=== PATIENT | male | born 1935 | race Caucasian/White ===

== ENCOUNTER 2018-01-05 08:46 | Day surgery (SDC) | payer MEDICARE ==
[~2018-01-05 08:46] MED LIST: ALIS150T PO; AMLO5TAB2 PO; ATRNS; CALC600T14 PO; CHOL200035 PO; CLOP75TA35 PO; FURO-150 PO; GABA-330 PO; HUM7525 SQ; LANTUS SQ; LIRA0.6P2 SQ; MAGN400C PO; OMEG1CAP PO; POTA20TA39 PO; VALS160T2 PO; [UNRECOGNIZED DRUG - CODE] OP; [UNRECOGNIZED DRUG - OTHER]
[2018-01-05] MEDS ORDERED: LIDOcaine 2% 5ml jelly ONE (09:59)
[2018-01-10] MEDS ORDERED: CEPH-571 PO (08:52)
== END 2018-01-05 11:04 | disposition home or self-care (01) ==
LOC: WOUND CARE 08:46
PROVIDERS: ATTEND Surgery
DX: S81.802D Unspecified open wound, left lower leg, subsequent encounter (principal); I25.810 Atherosclerosis of coronary artery bypass graft(s) without angina pectoris; E11.65 Type 2 diabetes mellitus with hyperglycemia; E11.22 Type 2 diabetes mellitus with diabetic chronic kidney disease; I12.9 Hypertensive chronic kidney disease with stage 1 through stage 4 chronic kidney disease, or unspecified chronic kidney disease; N18.4 Chronic kidney disease, stage 4 (severe); E78.5 Hyperlipidemia, unspecified; I25.2 Old myocardial infarction; Z86.73 Personal history of transient ischemic attack (TIA), and cerebral infarction without residual deficits; W19.XXXD Unspecified fall, subsequent encounter
CPT/HCPCS: 36416; 82948; 97597; A6206; A6212; A6446

== ENCOUNTER 2018-01-12 08:54 | Outpatient (CLI) | payer MEDICARE, BC ==
[~2018-01-12 08:54] MED LIST changes: -ALIS150T PO; +CEPH-571 PO; -HUM7525 SQ; -LANTUS SQ; -OMEG1CAP PO; -[UNRECOGNIZED DRUG - CODE] OP; -[UNRECOGNIZED DRUG - OTHER]
== END 2018-01-12 12:12 | disposition home or self-care (01) ==
LOC: WOUND CARE 08:54 → EDSTATUS 09:00 → WOUND CARE 12:12
PROVIDERS: ATTEND Surgery
DX: E11.622 Type 2 diabetes mellitus with other skin ulcer (principal); L97.821 Non-pressure chronic ulcer of other part of left lower leg limited to breakdown of skin; I25.810 Atherosclerosis of coronary artery bypass graft(s) without angina pectoris; E11.65 Type 2 diabetes mellitus with hyperglycemia; E11.22 Type 2 diabetes mellitus with diabetic chronic kidney disease; I12.9 Hypertensive chronic kidney disease with stage 1 through stage 4 chronic kidney disease, or unspecified chronic kidney disease; N18.4 Chronic kidney disease, stage 4 (severe); E78.5 Hyperlipidemia, unspecified; I25.2 Old myocardial infarction; Z86.73 Personal history of transient ischemic attack (TIA), and cerebral infarction without residual deficits; Z79.899 Other long term (current) drug therapy; Z95.1 Presence of aortocoronary bypass graft
CPT/HCPCS: 99215; A6021; A6206; A6212

== ENCOUNTER 2018-01-19 08:30 | Day surgery (SDC) | payer MEDICARE, BC ==
[2018-01-19] MEDS: LIDOcaine 2% 5ml jelly ONE (09:42)
== END 2018-01-19 11:03 | disposition home or self-care (01) ==
LOC: WOUND CARE 08:30
PROVIDERS: ATTEND Surgery
DX: E11.622 Type 2 diabetes mellitus with other skin ulcer (principal); L97.821 Non-pressure chronic ulcer of other part of left lower leg limited to breakdown of skin; I25.810 Atherosclerosis of coronary artery bypass graft(s) without angina pectoris; E11.65 Type 2 diabetes mellitus with hyperglycemia; E11.22 Type 2 diabetes mellitus with diabetic chronic kidney disease; I12.9 Hypertensive chronic kidney disease with stage 1 through stage 4 chronic kidney disease, or unspecified chronic kidney disease; N18.4 Chronic kidney disease, stage 4 (severe); E78.5 Hyperlipidemia, unspecified; I25.2 Old myocardial infarction; Z86.73 Personal history of transient ischemic attack (TIA), and cerebral infarction without residual deficits; Z79.899 Other long term (current) drug therapy; Z95.1 Presence of aortocoronary bypass graft
CPT/HCPCS: 36416; 82948; 97597; A6021; A6206; A6212

== ENCOUNTER 2018-01-26 08:20 | Outpatient (CLI) | payer MEDICARE, BC | END 2018-01-26 10:36 | disposition home or self-care (01) | LOC: WOUND CARE 08:20 → EDSTATUS 09:00 → WOUND CARE 10:36 | PROVIDERS: ATTEND Surgery | DX: E11.622 Type 2 diabetes mellitus with other skin ulcer (principal); L97.821 Non-pressure chronic ulcer of other part of left lower leg limited to breakdown of skin; I25.810 Atherosclerosis of coronary artery bypass graft(s) without angina pectoris; E11.65 Type 2 diabetes mellitus with hyperglycemia; E11.22 Type 2 diabetes mellitus with diabetic chronic kidney disease; I12.9 Hypertensive chronic kidney disease with stage 1 through stage 4 chronic kidney disease, or unspecified chronic kidney disease; N18.4 Chronic kidney disease, stage 4 (severe); E78.5 Hyperlipidemia, unspecified; I25.2 Old myocardial infarction; Z86.73 Personal history of transient ischemic attack (TIA), and cerebral infarction without residual deficits; Z79.899 Other long term (current) drug therapy; Z95.1 Presence of aortocoronary bypass graft | CPT/HCPCS: 82948; 99215; A6021; A6206; A6212 ==

== ENCOUNTER 2018-03-12 19:31 | Emergency (ER) | payer MEDICARE, BC ==
[~2018-03-12] VITALS: Ht 172.7 cm; Wt 63.5 kg
[~2018-03-12 19:31] MED LIST changes: -AMLO5TAB2 PO; +AMLO5TAB7 PO; -CEPH-571 PO
[2018-03-12] MEDS ORDERED: LIDOcaine/epinephrine TOPICAL 5 ML BTL TOP ONE (19:45)
[2018-03-12 19:55] LABS: BASOPHILS % (AUTO) 1.3 % (0-1); EOSINOPHILS % (AUTO) 0.9 % (0-6); HEMATOCRIT 28.4 % (42.0-52.0); HEMOGLOBIN 9.5 g/dl (14.0-17.9); LYMPHOCYTES # (AUTO) 1.5 X10'3 (1.1-4.8); LYMPHOCYTES % (AUTO) 49.7 % (21-51); MEAN CORPUSCULAR HGB CONC 33.4 % (33.0-36.5); MEAN CORPUSCULAR VOLUME 86.9 FL (78-98); MEAN PLATELET VOLUME 8.1 FL (7.4-10.4); MONOCYTES # (AUTO) 0.2 X10'3 (0-0.9); MONOCYTES % (AUTO) 5.3 % (2-12); NEUTROPHILS # (AUTO) 1.3 X10'3 (1.8-7.7); NEUTROPHILS % (AUTO) 42.8 % (42-75); PLATELET COUNT 63 X10'3 (140-440); RED BLOOD COUNT 3.26 X10'6 (4.70-6.10); WHITE BLOOD COUNT 3.1 X10'3 (4.5-11.0)
[2018-03-12 20:04] LABS: INR 1.2 INR; PROTHROMBIN TIME 12.1 SECONDS (9.0-12.0)
[2018-03-12 20:08] LABS: ALANINE AMINOTRANSFERASE 17 U/L (12-78); ALBUMIN 3.7 G/DL (3.4-5.0); ALBUMIN/GLOBULIN RATIO 1.9 (1.1-1.5); ALKALINE PHOSPHATASE 61 IU/L (46-116); ANION GAP 10 (8-16); ASPARTATE AMINO TRANSFERASE 14 U/L (10-37); BILIRUBIN,TOTAL 0.4 MG/DL (0.1-1.0); BLOOD UREA NITROGEN 32 MG/DL (7-18); BUN/CREATININE RATIO 14.8 (5.4-32.0); CALCIUM 8.4 MG/DL (8.5-10.1); CHLORIDE 109 MMOL/L (99-107); CREATININE 2.16 MG/DL (0.60-1.10); GLUCOSE 159 MG/DL (70-104); POTASSIUM 3.9 MMOL/L (3.5-5.1); SODIUM 146 MMOL/L (135-145); TOTAL CARBON DIOXIDE 26.6 MMOL/L (24-32); TOTAL PROTEIN 5.7 G/DL (6.4-8.2); eGFR 29 ML/MIN
[2018-03-12 20:21] LABS: ACANTHOCYTES 1+; ANISOCYTOSIS 1+; PLATELET ESTIMATE DECREASED; TOTAL CELLS COUNTED 100
[2018-03-12 20:22] VITALS: BP 151/94
== END 2018-03-12 20:45 | disposition home or self-care (01) ==
LOC: ER 19:32
DX: S00.01XA Abrasion of scalp, initial encounter (principal); S80.211A Abrasion, right knee, initial encounter; E11.9 Type 2 diabetes mellitus without complications; M19.90 Unspecified osteoarthritis, unspecified site; Z86.73 Personal history of transient ischemic attack (TIA), and cerebral infarction without residual deficits; Z98.890 Other specified postprocedural states; Z60.2 Problems related to living alone; Z88.2 Allergy status to sulfonamides; Z88.5 Allergy status to narcotic agent; Z88.1 Allergy status to other antibiotic agents; Z88.8 Allergy status to other drugs, medicaments and biological substances; Z79.899 Other long term (current) drug therapy; W01.0XXA Fall on same level from slipping, tripping and stumbling without subsequent striking against object, initial encounter; Y93.01 Activity, walking, marching and hiking; Y92.89 Other specified places as the place of occurrence of the external cause; Y99.8 Other external cause status
CPT/HCPCS: 36415; 70450; 80053; 85025; 85610; 93005; 99285; A6449; J7030

== ENCOUNTER 2018-03-15 20:27 | Emergency (ER) | payer MEDICARE, BC ==
[~2018-03-15] VITALS: Ht 177.8 cm; Wt 63.6 kg
[2018-03-15 21:13] VITALS: BP 144/56
== END 2018-03-16 00:34 | disposition home or self-care (01) ==
LOC: ER 20:28
DX: S16.1XXA Strain of muscle, fascia and tendon at neck level, initial encounter (principal); R51 Headache; E11.9 Type 2 diabetes mellitus without complications; M19.90 Unspecified osteoarthritis, unspecified site; Z86.73 Personal history of transient ischemic attack (TIA), and cerebral infarction without residual deficits; Z95.1 Presence of aortocoronary bypass graft; Z88.6 Allergy status to analgesic agent; Z88.1 Allergy status to other antibiotic agents; Z88.2 Allergy status to sulfonamides; Z88.8 Allergy status to other drugs, medicaments and biological substances; W18.30XA Fall on same level, unspecified, initial encounter; Y93.89 Activity, other specified; Y92.89 Other specified places as the place of occurrence of the external cause; Y99.8 Other external cause status
CPT/HCPCS: 70450; 72125; 99284; L0172

== ENCOUNTER 2019-01-18 05:36 | Emergency (ER) | payer MEDICARE, BC ==
[~2019-01-18] VITALS: Ht 182.9 cm; Wt 72.7 kg
[~2019-01-18 05:36] MED LIST changes: +AMLO-314 PO; -AMLO5TAB7 PO
[2019-01-18 06:22] LABS: BASOPHILS % (AUTO) 0.6 % (0-1); EOSINOPHILS # (AUTO) 0.1 X10'3 (0-0.9); HEMOGLOBIN 9.9 g/dl (14.0-17.9); LYMPHOCYTES # (AUTO) 0.1 X10'3 (1.1-4.8); MONOCYTES # (AUTO) 0.3 X10'3 (0-0.9); NEUTROPHILS # (AUTO) 3.2 X10'3 (1.8-7.7)
[2019-01-18 06:25] LABS: EOSINOPHILS % (AUTO) 2.4 % (0-6); HEMATOCRIT 29.6 % (42.0-52.0); LYMPHOCYTES % (AUTO) 2.9 % (21-51); MEAN CORPUSCULAR HEMOGLOBIN 31.8 PG (27.0-31.0); MEAN CORPUSCULAR HGB CONC 33.4 g/dL (33.0-36.5); MEAN CORPUSCULAR VOLUME 95.1 FL (78-98); MEAN PLATELET VOLUME 8.7 FL (7.4-10.4); MONOCYTES % (AUTO) 7.7 % (2-12); NEUTROPHILS % (AUTO) 86.4 % (42-75); PLATELET COUNT 57 X10'3 (140-440); RED BLOOD COUNT 3.11 X10'6 (4.70-6.10); WHITE BLOOD COUNT 3.7 X10'3 (4.5-11.0)
--- NOTE | 2019-01-18 06:28 | NUR ---
PATIENT RECEIVED ON BED AWAKE.
--- NOTE | 2019-01-18 06:36 | NUR ---
called cas shaffer spoke to Mckenzie,per caregiver,patient does not have list of Past medical history.
[2019-01-18 06:37] LABS: ALANINE AMINOTRANSFERASE 23 U/L (12-78); ALBUMIN 3.5 G/DL (3.4-5.0); ALBUMIN/GLOBULIN RATIO 1.7 (1.1-1.5); ALKALINE PHOSPHATASE 66 IU/L (46-116); ANION GAP 7 (8-16); ASPARTATE AMINO TRANSFERASE 18 U/L (10-37); BILIRUBIN,TOTAL 0.6 MG/DL (0.1-1.0); BLOOD UREA NITROGEN 31 MG/DL (7-18); BUN/CREATININE RATIO 19.9 (5.4-32.0); CALCIUM 8.6 MG/DL (8.5-10.1); CHLORIDE 113 MMOL/L (99-107); CREATINE KINASE 93 U/L (39-308); CREATININE 1.56 MG/DL (0.60-1.10); GLUCOSE 121 MG/DL (70-104); POTASSIUM 4.2 MMOL/L (3.5-5.1); SODIUM 146 MMOL/L (135-145); TOTAL CARBON DIOXIDE 26.1 MMOL/L (24-32); TOTAL PROTEIN 5.6 G/DL (6.4-8.2); eGFR 43 ML/MIN
--- NOTE | 2019-01-18 06:43 | NUR ---
cancel trauma alert per Dr. olea.
--- NOTE | 2019-01-18 06:45 | NUR ---
PT HAS PORT IN RT CHEST
[2019-01-18 07:00] LABS: CLARITY,URINE CLEAR (Clear); COLOR,URINE STRAW (Yellow); GLUCOSE, URINE NEGATIVE (Neg); KETONES,URINE NEGATIVE (Neg); LEUKOCYTE ESTERASE ,URINE NEGATIVE (Neg); NITRITES, URINE NEGATIVE (Neg); OCCULT BLOOD,URINE TRACE-INTACT (Neg); PROTEIN,URINE 100 mg/dl (Neg); UROBILINOGEN,URINE 0.2 E.U/dL (0.2-1.0)
[2019-01-18 07:06] LABS: UA COLLECTION TYPE CLN CATCH MIDSTREAM
[2019-01-18 07:10] LABS: BACTERIA,URINE FEW /HPF (Neg); SQUAMOUS EPITHELIAL CELL,UR FEW /LPF (FEW); WBC,URINE 0-4 /HPF (0-4)
[2019-01-18 08:16] VITALS: BP 165/81
== END 2019-01-18 08:19 | disposition home or self-care (01) ==
LOC: ER 05:36
DX: S40.012A Contusion of left shoulder, initial encounter (principal); S00.83XA Contusion of other part of head, initial encounter; F03.90 Unspecified dementia, unspecified severity, without behavioral disturbance, psychotic disturbance, mood disturbance, and anxiety; E11.9 Type 2 diabetes mellitus without complications; M19.90 Unspecified osteoarthritis, unspecified site; Z88.2 Allergy status to sulfonamides; Z88.1 Allergy status to other antibiotic agents; Z88.5 Allergy status to narcotic agent; Z79.899 Other long term (current) drug therapy; Z86.73 Personal history of transient ischemic attack (TIA), and cerebral infarction without residual deficits; Z95.1 Presence of aortocoronary bypass graft; Z98.890 Other specified postprocedural states; W18.39XA Other fall on same level, initial encounter; Y93.89 Activity, other specified; Y92.89 Other specified places as the place of occurrence of the external cause; Y99.8 Other external cause status
CPT/HCPCS: 36415; 70450; 71045; 72125; 73030; 80053; 81001; 82550; 83735; 84484; 85025; 87088; 93005; 99284

== ENCOUNTER 2019-01-22 15:52 | Inpatient (IN) | payer MEDICARE, BC ==
[~2019-01-22] VITALS: Ht 172.7 cm; Wt 85.0 kg
[2019-01-22] MEDS ORDERED: normal saline 1000ML IV soln IV ONE (16:10)
[2019-01-22] MEDS ORDERED: CefTRIAXone 2gm/D5W 50ml 50 ML IV ONE (16:10)
[2019-01-22 16:38] LABS: BASOPHILS % (AUTO) 0.3 % (0-1); EOSINOPHILS % (AUTO) 0.2 % (0-6); HEMATOCRIT 30.3 % (42.0-52.0); HEMOGLOBIN 10.1 g/dl (14.0-17.9); LYMPHOCYTES # (AUTO) 0.1 X10'3 (1.1-4.8); LYMPHOCYTES % (AUTO) 1.6 % (21-51); MEAN CORPUSCULAR HEMOGLOBIN 31.6 PG (27.0-31.0); MEAN CORPUSCULAR HGB CONC 33.3 g/dL (33.0-36.5); MEAN CORPUSCULAR VOLUME 94.8 FL (78-98); MEAN PLATELET VOLUME 7.8 FL (7.4-10.4); MONOCYTES # (AUTO) 0.4 X10'3 (0-0.9); MONOCYTES % (AUTO) 6.9 % (2-12); NEUTROPHILS # (AUTO) 5.3 X10'3 (1.8-7.7); PLATELET COUNT 66 X10'3 (140-440); RED CELL DISTRIBUTION WIDTH 15.4 % (11.5-14.5); WHITE BLOOD COUNT 5.8 X10'3 (4.5-11.0)
[2019-01-22] MEDS ORDERED: azithromycin/NS 500mg/250ml 250 ML IV ONE (16:45)
[2019-01-22 16:51] LABS: PARTIAL THROMBOPLASTIN TIME 40 SECONDS (22-32)
[2019-01-22 16:53] LABS: ALANINE AMINOTRANSFERASE 21 U/L (12-78); ALBUMIN 3.1 G/DL (3.4-5.0); ALBUMIN/GLOBULIN RATIO 1.3 (1.1-1.5); ALKALINE PHOSPHATASE 61 IU/L (46-116); ANION GAP 7 (8-16); ASPARTATE AMINO TRANSFERASE 16 U/L (10-37); BILIRUBIN,TOTAL 0.7 MG/DL (0.1-1.0); BLOOD UREA NITROGEN 31 MG/DL (7-18); BUN/CREATININE RATIO 18.6 (5.4-32.0); CALCIUM 7.9 MG/DL (8.5-10.1); CHLORIDE 107 MMOL/L (99-107); CREATININE 1.67 MG/DL (0.60-1.10); GLUCOSE 163 MG/DL (70-104); POTASSIUM 4.3 MMOL/L (3.5-5.1); SODIUM 141 MMOL/L (135-145); TOTAL CARBON DIOXIDE 27.2 MMOL/L (24-32); TOTAL PROTEIN 5.5 G/DL (6.4-8.2); eGFR 39 ML/MIN
[2019-01-22 17:09] LABS: CLARITY,URINE SLIGHTLY CLOUDY (Clear); COLOR,URINE YELLOW (Yellow); GLUCOSE, URINE 250 mg/dl (Neg); KETONES,URINE NEGATIVE (Neg); LEUKOCYTE ESTERASE ,URINE NEGATIVE (Neg); NITRITES, URINE NEGATIVE (Neg); OCCULT BLOOD,URINE SMALL (Neg); PH,URINE 5.5 (4.8-8.0); PROTEIN,URINE 100 mg/dl (Neg); UROBILINOGEN,URINE 0.2 E.U/dL (0.2-1.0)
[2019-01-22 17:16] LABS: UA COLLECTION TYPE STRAIGHT CATH
[2019-01-22 17:26] LABS: COARSE GRANULAR CAST 0-3 /LPF (NEGATIVE)
[2019-01-22 17:27] LABS: SQUAMOUS EPITHELIAL CELL,UR NONE SEEN /LPF (FEW)
[2019-01-22] MEDS ORDERED: ipratropium/albuterol 3ml nebule NEB ONE (17:30)
[2019-01-22] MEDS ORDERED: methylPREDNISolone sod succ 125mg/2ml vial IV ONE (17:30)
[2019-01-22 17:31] LABS: AMORPHOUS URATES 2+
[2019-01-22 17:33] LABS: BACTERIA,URINE FEW /HPF (Neg)
[2019-01-22 17:34] LABS: RBC,URINE 0-2 /HPF (0-2)
[2019-01-22 17:35] LABS: WBC,URINE NONE SEEN /HPF (0-4)
[2019-01-22] MEDS ORDERED: CALC1TAB PO (17:55)
[2019-01-22] MEDS ORDERED: FERR324T3 PO (17:55)
[2019-01-22] MEDS ORDERED: OLME20TA23 PO (17:55)
[2019-01-22] MEDS ORDERED: DOCU100C41 PO (17:55)
[2019-01-22] MEDS ORDERED: ALLO300T2 PO (17:55)
[2019-01-22] MEDS ORDERED: LOPE-144 PO (17:55)
[2019-01-22] MEDS ORDERED: ESCI10TA54 PO (17:55)
--- NOTE | 2019-01-22 18:20 | NUR ---
HOSPITALIST AT BEDSIDE FOR ADMISSION
[2019-01-22] MEDS: normal saline 1000ml 1,000 ML IV SCH (18:21)
[2019-01-22] MEDS ORDERED: HYDROcodone/acetaminophen 5mg/325mg tablet PO PRN (18:25)
[2019-01-22] MEDS ORDERED: morphine 2 MG/ML inj. syringe IV PRN (18:25)
[2019-01-22] MEDS ORDERED: ondansetron/PF 4mg/2ml inj IV PRN (18:25)
[2019-01-22] MEDS ORDERED: acetaminophen 325mg tablet PO PRN (18:25)
[2019-01-22] MEDS ORDERED: glucagon, human recombinant 1mg kit SUBCUT PRN (18:30)
[2019-01-22] MEDS ORDERED: dextrose 50%-water 50ml dispensing syringe IV PRN ×2 (18:30)
[2019-01-22] MEDS ORDERED: dextrose ORAL solution 15 GM/59 ML bottle PO PRN ×2 (18:30)
[2019-01-22] MEDS ORDERED: MESSAGE TO PHARMACY PO ONE (18:30)
[2019-01-22] MEDS: acetaminophen 325mg tablet PO PRN (18:40)
[2019-01-22 19:06] LABS: HEMOGLOBIN A1C 5.7 % (4.5-6.2)
--- NOTE | 2019-01-22 19:29 | NUR ---
DAUGHTER AT BEDSIDE - IV FLUID BOLUS INFUSING WELL ABX.
[2019-01-22] MEDS: magnesium oxide 400mg tablet PO SCH (20:00)
[2019-01-22] MEDS: docusate sod 100mg capsule PO SCH (20:00)
[2019-01-22] MEDS ORDERED: non-formulary drug (Magnesium Oxide (Magnesium) 400 MG) PO SCH (20:00)
[2019-01-22] MEDS ORDERED: heparin, porcine 5000 units/ml vial SQ SCH (20:00)
--- NOTE | 2019-01-22 20:40 | NUR ---
Patient arrived to floor from the ER. Accompanied with family. Patient is not in any pain or respiratory distress at this time.
[2019-01-22] MEDS ORDERED: FERROUS GLUCONATE PO SCH (21:00)
[2019-01-22] MEDS: insulin glargine (Lantus) pen - multi-dose SQ SCH (21:00)
[2019-01-22] MEDS: amLODIPine 5mg tablet PO SCH (21:32)
--- NOTE | 2019-01-22 22:52 | NUR ---
Earlier in shift called respiratory to assess patient as lungs sounding wet/coarse. Rt evaluated, stated no treatments would help at this time. called MD who stated as long as patient asymptomatic, no lasik required, skip the 3rd bolus of 1000ml from ER and ok to infuse maintanence fluid at 50ml/hr. Will continue to monitor. Addendum: 01/22/19 at 2300 by Leslie Rasmussen RN Informed by tele that patient now in bigeminy rhythm. VS 133/55,69, 97% on 3L. informed who stated as long as patient asymptomatic, no new orders.
--- NOTE | 2019-01-22 23:08 | NUR ---
Patient did not receive lantus HS as patient had eaten a yoghurt down in ER. Charge nurse said to re-evaluate n the AM as patient has a low A1C.
[2019-01-23] VITALS: BP 135/51
[2019-01-23] MEDS: piperacillin/tazo 3.375gm/50ml 50 ML IV SCH ×3 (00:12→16:31)
[2019-01-23 05:00] LABS: BASOPHILS % (AUTO) 0.1 % (0-1); EOSINOPHILS % (AUTO) 0.1 % (0-6); HEMATOCRIT 27.8 % (42.0-52.0); HEMOGLOBIN 9.2 g/dl (14.0-17.9); LYMPHOCYTES # (AUTO) 0.1 X10'3 (1.1-4.8); LYMPHOCYTES % (AUTO) 2.5 % (21-51); MEAN PLATELET VOLUME 8.4 FL (7.4-10.4); MONOCYTES # (AUTO) 0.1 X10'3 (0-0.9); MONOCYTES % (AUTO) 3.7 % (2-12); NEUTROPHILS % (AUTO) 93.6 % (42-75); PLATELET COUNT 52 X10'3 (140-440); RED BLOOD COUNT 2.95 X10'6 (4.70-6.10); RED CELL DISTRIBUTION WIDTH 15.4 % (11.5-14.5); WHITE BLOOD COUNT 2.1 X10'3 (4.5-11.0)
[2019-01-23 05:09] LABS: ALBUMIN 2.7 G/DL (3.4-5.0); ANION GAP 8 (8-16); BLOOD UREA NITROGEN 31 MG/DL (7-18); CALCIUM 7.9 MG/DL (8.5-10.1); CHLORIDE 111 MMOL/L (99-107); CREATININE 1.63 MG/DL (0.60-1.10); GLUCOSE 247 MG/DL (70-104); POTASSIUM 4.5 MMOL/L (3.5-5.1); SODIUM 143 MMOL/L (135-145); TOTAL CARBON DIOXIDE 24.1 MMOL/L (24-32); eGFR 40 ML/MIN
--- NOTE | 2019-01-23 06:10 | NUR ---
Problems reprioritized. Patient report given, questions answered & plan of care reviewed with Heather EUBANKS.
--- NOTE | 2019-01-23 06:35 | NUR ---
Patient in room SHELL 344. I have received report from Leslie EUBANKS and had the opportunity to ask questions and assume patient care.
[2019-01-23 07:28] LABS: TOTAL CELLS COUNTED 100
[2019-01-23 07:29] LABS: PLATELET ESTIMATE DECREASED
[2019-01-23 07:31] VITALS: BP 126/54
[2019-01-23] MEDS: docusate sod 100mg capsule PO SCH ×2 (07:42→19:48)
[2019-01-23] MEDS: allopurinol 300 MG tablet PO SCH (07:42)
[2019-01-23] MEDS: losartan 50mg tablet PO SCH (07:42)
[2019-01-23] MEDS: amLODIPine 5mg tablet PO SCH ×2 (07:42→19:48)
[2019-01-23] MEDS: magnesium oxide 400mg tablet PO SCH ×2 (07:42→19:48)
[2019-01-23] MEDS: clopidogrel 75mg tablet PO SCH (07:42)
[2019-01-23] MEDS: citalopram 20mg tablet PO SCH (07:42)
[2019-01-23] MEDS: ferrous gluconate 324mg tablet PO SCH ×3 (07:45→16:32)
[2019-01-23] MEDS ORDERED: non-formulary drug (Escitalopram Oxalate 1 TAB) PO SCH (08:00)
[2019-01-23] MEDS ORDERED: OLMESARTAN MEDOXOMIL PO SCH (08:00)
[2019-01-23] MEDS ORDERED: ferrous gluconate 324mg tablet PO SCH (08:30)
[2019-01-23] MEDS: insulin Lispro (HumaLOG) vial - multi-dose SQ SCH ×2 (09:14→14:06)
--- NOTE | 2019-01-23 10:31 | NUR ---
Pt with low Yong of 12. Per physical assessment pt with no edema and skin intact. No nutrition intervention warranted at this time. Will continue to follow. Addendum: 01/23/19 at [address] Amended: Links added.
[2019-01-23] MEDS ORDERED: GABA600T13 PO (11:33)
[2019-01-23 11:53] VITALS: BP 122/47
[2019-01-23] MEDS: normal saline 1000ml 1,000 ML IV SCH ×2 (14:21→16:34)
[2019-01-23] MEDS: ipratropium/albuterol 3ml nebule NEB SCH ×3 (16:12→23:16)
[2019-01-23 18:00] VITALS: BP 148/67
--- NOTE | 2019-01-23 18:27 | NUR ---
Patient in room SHELL 344. I have received report from RAIMUNDO Romero and had the opportunity to ask questions and assume patient care. Addendum: 01/23/19 at 1827 by Sneha Roldan RN Amended: Links added.
--- NOTE | 2019-01-23 18:27 | NUR ---
Problems reprioritized. Patient report given, questions answered & plan of care reviewed with Delia Collado RN.
--- NOTE | 2019-01-23 19:42 | NUR ---
pt did not cover his insulin for dinner, BS was 96 and refused his dinner, no s/s of hypoglycemia noted
[2019-01-23] MEDS: insulin glargine (Lantus) pen - multi-dose SQ SCH (21:00)
[2019-01-24] MEDS: acetaminophen 325mg tablet PO PRN (00:44)
[2019-01-24] MEDS: piperacillin/tazo 3.375gm/50ml 50 ML IV SCH ×3 (00:44→16:07)
[2019-01-24] MEDS: ipratropium/albuterol 3ml nebule NEB SCH ×6 (03:00→23:02)
[2019-01-24 06:18] LABS: BASOPHILS % (AUTO) 0.3 % (0-1); EOSINOPHILS % (AUTO) 0.9 % (0-6); HEMOGLOBIN 9.4 g/dl (14.0-17.9); LYMPHOCYTES # (AUTO) 0.1 X10'3 (1.1-4.8); LYMPHOCYTES % (AUTO) 2.4 % (21-51); MEAN CORPUSCULAR HGB CONC 33.4 g/dL (33.0-36.5); MEAN CORPUSCULAR VOLUME 92.6 FL (78-98); MEAN PLATELET VOLUME 8.1 FL (7.4-10.4); MONOCYTES # (AUTO) 0.2 X10'3 (0-0.9); MONOCYTES % (AUTO) 5.4 % (2-12); NEUTROPHILS # (AUTO) 3.3 X10'3 (1.8-7.7); PLATELET COUNT 76 X10'3 (140-440); RED BLOOD COUNT 3.02 X10'6 (4.70-6.10); RED CELL DISTRIBUTION WIDTH 15.6 % (11.5-14.5); WHITE BLOOD COUNT 3.7 X10'3 (4.5-11.0)
[2019-01-24 06:23] LABS: ALBUMIN 2.6 G/DL (3.4-5.0); ANION GAP 8 (8-16); BLOOD UREA NITROGEN 35 MG/DL (7-18); BUN/CREATININE RATIO 23.3 (5.4-32.0); CALCIUM 8.1 MG/DL (8.5-10.1); CHLORIDE 113 MMOL/L (99-107); GLUCOSE 135 MG/DL (70-104); POTASSIUM 3.9 MMOL/L (3.5-5.1); SODIUM 144 MMOL/L (135-145); TOTAL CARBON DIOXIDE 23.2 MMOL/L (24-32); eGFR 44 ML/MIN
--- NOTE | 2019-01-24 06:47 | NUR ---
Problems reprioritized. Patient report given, questions answered & plan of care reviewed with hilario Youssef. Addendum: 01/24/19 at 0648 by Sneha Roldan RN Amended: Links added.
[2019-01-24 07:00] VITALS: BP 141/69
--- NOTE | 2019-01-24 07:46 | NUR ---
DNR BAND WAS NOT ON PT. CHECKED DR ORDER AND HAD ANOTHER NURSE CO SIGN BAND. PLACED BAND ON PT
[2019-01-24] MEDS: amLODIPine 5mg tablet PO SCH ×2 (09:12→20:24)
[2019-01-24] MEDS: magnesium oxide 400mg tablet PO SCH ×2 (09:12→20:24)
[2019-01-24] MEDS: docusate sod 100mg capsule PO SCH ×2 (09:12→20:24)
[2019-01-24] MEDS: allopurinol 300 MG tablet PO SCH (09:12)
[2019-01-24] MEDS: citalopram 20mg tablet PO SCH (09:12)
[2019-01-24] MEDS: losartan 50mg tablet PO SCH (09:12)
[2019-01-24] MEDS: clopidogrel 75mg tablet PO SCH (09:12)
[2019-01-24] MEDS: ferrous gluconate 324mg tablet PO SCH ×3 (09:12→17:36)
[2019-01-24 11:00] VITALS: BP 160/71
--- NOTE | 2019-01-24 11:31 | NUR ---
HOSPITALIST ROUNDED ON THIS PATIENT. HE ASKED ABOUT PHYSICAL THERAPY. I ASKED PHYSICAL THERAPY IF THEY WERE SEEING HIM TODAY. THEY STATED, THAT'S THE PLAN WE ARE WAITING TO SEE AN EVAL, THEN HE IS NEXT.
[2019-01-24] MEDS: normal saline 1000ml 1,000 ML IV SCH (11:37)
[2019-01-24] MEDS: insulin Lispro (HumaLOG) vial - multi-dose SQ SCH ×2 (13:31→19:43)
--- NOTE | 2019-01-24 17:00 | NUR ---
DAUGHTER IS ASKING IF DAD GOT RT TX
--- NOTE | 2019-01-24 17:26 | NUR ---
FAMILY IS ASKING FOR SOMETHING TO HELP PT SLEEP. PAGED THE HOSPITALIST AND ASKED FOR MELATONIN. AWAITING RESPONSE
--- NOTE | 2019-01-24 17:48 | NUR ---
FAMILY IS ASKING ABOUT A BREATHING TX AGAIN. DAUGHTER FEELS WHILE SHE IS AT BEDSIDE THAT HER DAD WILL TAKE A TX. SHE STATES THEY HAVE BEEN HELPING. CHARGE PAGED RT
--- NOTE | 2019-01-24 18:11 | NUR ---
Problems reprioritized. Patient report given, questions answered & plan of care reviewed with GEM EUBANKS.
--- NOTE | 2019-01-24 18:45 | NUR ---
Patient in room SHELL 352. I have received report from RAIMUNDO Torrez and had the opportunity to ask questions and assume patient care. Addendum: 01/25/19 at 0120 by Ivett Leigh RN Amended: Links added.
[2019-01-24 20:32] VITALS: BP 155/74
[2019-01-24] MEDS: insulin glargine (Lantus) pen - multi-dose SQ SCH (22:37)
[2019-01-25] MEDS: piperacillin/tazo 3.375gm/50ml 50 ML IV SCH ×2 (00:02→07:54)
[2019-01-25] MEDS: ipratropium/albuterol 3ml nebule NEB SCH ×3 (02:42→11:07)
[2019-01-25 05:54] LABS: BASOPHILS % (AUTO) 0.4 % (0-1); EOSINOPHILS % (AUTO) 1.1 % (0-6); HEMATOCRIT 27.7 % (42.0-52.0); HEMOGLOBIN 9.3 g/dl (14.0-17.9); LYMPHOCYTES # (AUTO) 0.1 X10'3 (1.1-4.8); LYMPHOCYTES % (AUTO) 3.6 % (21-51); MEAN CORPUSCULAR HEMOGLOBIN 31.6 PG (27.0-31.0); MEAN CORPUSCULAR HGB CONC 33.6 g/dL (33.0-36.5); MONOCYTES # (AUTO) 0.2 X10'3 (0-0.9); MONOCYTES % (AUTO) 7.4 % (2-12); NEUTROPHILS # (AUTO) 2.6 X10'3 (1.8-7.7); NEUTROPHILS % (AUTO) 87.5 % (42-75); PLATELET COUNT 78 X10'3 (140-440); RED BLOOD COUNT 2.95 X10'6 (4.70-6.10); RED CELL DISTRIBUTION WIDTH 15.7 % (11.5-14.5)
[2019-01-25 06:04] LABS: ALBUMIN 2.7 G/DL (3.4-5.0); ANION GAP 8 (8-16); BLOOD UREA NITROGEN 28 MG/DL (7-18); BUN/CREATININE RATIO 19.2 (5.4-32.0); CALCIUM 8.4 MG/DL (8.5-10.1); CHLORIDE 112 MMOL/L (99-107); CREATININE 1.46 MG/DL (0.60-1.10); GLUCOSE 133 MG/DL (70-104); POTASSIUM 3.5 MMOL/L (3.5-5.1); SODIUM 147 MMOL/L (135-145); TOTAL CARBON DIOXIDE 26.8 MMOL/L (24-32); eGFR 46 ML/MIN
--- NOTE | 2019-01-25 06:27 | NUR ---
Problems reprioritized. Patient report given, questions answered & plan of care reviewed with RAIMUNDO Torrez. Addendum: 01/25/19 at 8138 by Ivett Leigh RN Amended: Links added.
--- NOTE | 2019-01-25 06:45 | NUR ---
Patient in room SHELL 352. I have received report from GEM EUBANKS and had the opportunity to ask questions and assume patient care.
[2019-01-25 06:54] VITALS: BP 152/72
--- NOTE | 2019-01-25 06:56 | NUR ---
ROUNDED ON PT, FILLED OUT HIS WHITEBOARD, AND TOLD HIM GOOD MORNING. PT HAS GOOD COLOR AND IS ABLE TO SPEAK TO ME.
--- NOTE | 2019-01-25 06:57 | NUR ---
V/S WERE DONE BY SITTER AT 0635. PT IS SATTING AT 96% ON 4 LITRES
[2019-01-25] MEDS: allopurinol 300 MG tablet PO SCH (07:52)
[2019-01-25] MEDS: docusate sod 100mg capsule PO SCH (07:52)
[2019-01-25] MEDS: amLODIPine 5mg tablet PO SCH (07:53)
[2019-01-25] MEDS: clopidogrel 75mg tablet PO SCH (07:53)
[2019-01-25] MEDS: citalopram 20mg tablet PO SCH (07:53)
[2019-01-25] MEDS: ferrous gluconate 324mg tablet PO SCH (07:53)
[2019-01-25] MEDS: magnesium oxide 400mg tablet PO SCH (07:53)
[2019-01-25] MEDS: losartan 50mg tablet PO SCH (07:53)
--- NOTE | 2019-01-25 09:00 | NUR ---
i recommended to physical therapy taht pt be seen early. he does better in the mornings.
[2019-01-25] MEDS: insulin Lispro (HumaLOG) vial - multi-dose SQ SCH (09:47)
[2019-01-25 11:00] VITALS: BP 134/67
[2019-01-25] MEDS ORDERED: AMOX-422 PO (11:07)
--- NOTE | 2019-01-25 11:45 | NUR ---
O2 Sat at rest on room air:_88__% If below 89%: Recovery O2 Sat at rest on 4___LPM:__96_%:___% via CANNULA (mask/nasal cannula, etc..) No further documentation is necessary. If O2 Sat did not drop below 89% on room air,ambulate patient on room air. O2 Sat while ambulating on room air:___% Recovery O2 Sat while ambulating on ___LPM:___% No further documentation is necessary. If patient does not drop below 89% while ambulating, he/she does not qualify for home O2.
== END 2019-01-25 14:22 | DRG 177 ==
LOC: ER 15:52 → SUR 3N 20:16 → CMPBEDREQ 20:32 → SUR 3N 21:49
PROVIDERS: ADMIT Internal Medicine; ATTEND Family Medicine
DX: J69.0 Pneumonitis due to inhalation of food and vomit (principal); J96.01 Acute respiratory failure with hypoxia; G93.41 Metabolic encephalopathy; C95.90 Leukemia, unspecified not having achieved remission; N18.3 Chronic kidney disease, stage 3 (moderate); D64.9 Anemia, unspecified; M19.90 Unspecified osteoarthritis, unspecified site; I12.9 Hypertensive chronic kidney disease with stage 1 through stage 4 chronic kidney disease, or unspecified chronic kidney disease; R91.1 Solitary pulmonary nodule; D69.6 Thrombocytopenia, unspecified; E11.22 Type 2 diabetes mellitus with diabetic chronic kidney disease; F03.90 Unspecified dementia, unspecified severity, without behavioral disturbance, psychotic disturbance, mood disturbance, and anxiety; I25.10 Atherosclerotic heart disease of native coronary artery without angina pectoris; Z66 Do not resuscitate; Z86.73 Personal history of transient ischemic attack (TIA), and cerebral infarction without residual deficits; Z95.1 Presence of aortocoronary bypass graft; Z88.1 Allergy status to other antibiotic agents; Z88.5 Allergy status to narcotic agent; Z88.2 Allergy status to sulfonamides; Z88.8 Allergy status to other drugs, medicaments and biological substances
CPT/HCPCS: 36415; 71045; 71250; 80048; 80053; 81001; 82948; 83036; 83605; 84145; 85025; 85610; 85730; 87040; 87081; 94640; 94760; 96365; 96368; 96375; 97161; 97530; 99285; G0378; J0456; J0696; J1815; J2270; J2543; J2930; J7030

== ENCOUNTER 2019-01-25 23:56 | Inpatient (IN) | payer MEDICARE, BC ==
[~2019-01-25] VITALS: Ht 185.4 cm; Wt 68.0 kg
[~2019-01-25 23:56] MED LIST changes: +ALLO300T2 PO; +AMOX-422 PO; -ATRNS; +CALC1TAB PO; -CALC600T14 PO; -CHOL200035 PO; +DOCU100C41 PO; +ESCI10TA54 PO; +FERR324T3 PO; -FURO-150 PO; -GABA-330 PO; +GABA600T13 PO; -LIRA0.6P2 SQ; +LOPE-144 PO; -MAGN400C PO; +OLME20TA23 PO; -POTA20TA39 PO; -VALS160T2 PO
--- NOTE | 2019-01-26 00:20 | NUR ---
TO HOMER MONTEJO RN ESCORTING
--- NOTE | 2019-01-26 00:43 | NUR ---
BACK FROM CT WHERE GUSTABO RN REPORTS PT COUGHED UP THICK CLEAR PHLEGM STREAKED WITH BLOOD. PT DC'D FROM THIS FACILITY EARLIER TODAY FOLLOWING ADMISSION FOR PNEUMONIA; ABX CURRENTLY PRESCRIBED.
[2019-01-26 01:11] LABS: BASOPHILS % (AUTO) 0.6 % (0-1); EOSINOPHILS # (AUTO) 0.1 X10'3 (0-0.9); EOSINOPHILS % (AUTO) 2.2 % (0-6); HEMATOCRIT 27.4 % (42.0-52.0); LYMPHOCYTES # (AUTO) 0.1 X10'3 (1.1-4.8); LYMPHOCYTES % (AUTO) 4.1 % (21-51); MEAN CORPUSCULAR HEMOGLOBIN 30.5 PG (27.0-31.0); MEAN CORPUSCULAR VOLUME 92.4 FL (78-98); MEAN PLATELET VOLUME 7.6 FL (7.4-10.4); MONOCYTES # (AUTO) 0.2 X10'3 (0-0.9); MONOCYTES % (AUTO) 7.7 % (2-12); NEUTROPHILS # (AUTO) 2.2 X10'3 (1.8-7.7); NEUTROPHILS % (AUTO) 85.4 % (42-75); PLATELET COUNT 79 X10'3 (140-440); RED BLOOD COUNT 2.96 X10'6 (4.70-6.10); RED CELL DISTRIBUTION WIDTH 15.6 % (11.5-14.5); WHITE BLOOD COUNT 2.6 X10'3 (4.5-11.0)
[2019-01-26 01:21] LABS: ALANINE AMINOTRANSFERASE 22 U/L (12-78); ALBUMIN 2.7 G/DL (3.4-5.0); ALBUMIN/GLOBULIN RATIO 1.2 (1.1-1.5); ALKALINE PHOSPHATASE 49 IU/L (46-116); ANION GAP 8 (8-16); ASPARTATE AMINO TRANSFERASE 13 U/L (10-37); BILIRUBIN,TOTAL 0.6 MG/DL (0.1-1.0); BLOOD UREA NITROGEN 26 MG/DL (7-18); BUN/CREATININE RATIO 19.5 (5.4-32.0); CALCIUM 7.8 MG/DL (8.5-10.1); CHLORIDE 113 MMOL/L (99-107); CREATININE 1.33 MG/DL (0.60-1.10); GLUCOSE 118 MG/DL (70-104); PARTIAL THROMBOPLASTIN TIME 40 SECONDS (22-32); POTASSIUM 3.8 MMOL/L (3.5-5.1); SODIUM 147 MMOL/L (135-145); TOTAL CARBON DIOXIDE 25.6 MMOL/L (24-32); eGFR 51 ML/MIN
[2019-01-26 01:25] LABS: TROPONIN I 0.11 NG/ML (0.0-0.05)
[2019-01-26 01:37] LABS: LIPASE 83 U/L (73-393)
[2019-01-26] MEDS ORDERED: magnesium hydroxide 30ml (MOM) UD suspension PO PRN (02:15)
[2019-01-26] MEDS ORDERED: mag hydrox/Alum hydrox/simeth 30ml oral suspension PO PRN (02:15)
[2019-01-26] MEDS ORDERED: acetaminophen 325mg tablet PO PRN (02:15)
[2019-01-26] MEDS ORDERED: ondansetron/PF 4mg/2ml inj IV PRN (02:15)
[2019-01-26 02:31] LABS: PLATELET ESTIMATE DECREASED; TOTAL CELLS COUNTED 100
--- NOTE | 2019-01-26 02:48 | NUR ---
Daughter, Magda [phone]
--- NOTE | 2019-01-26 03:25 | NUR ---
I have received report from Coral HARDING RN and had the opportunity to ask questions and awaiting pt arrival.
[2019-01-26 04:00] VITALS: BP 166/57
[2019-01-26 06:00] VITALS: BP 182/84
--- NOTE | 2019-01-26 06:00 | NUR ---
Patient in room ORTHO 4008. I have received report from PIETER EUBANKS and had the opportunity to ask questions and assume patient care.
--- NOTE | 2019-01-26 06:06 | NUR ---
Problems reprioritized. Patient report given, questions answered & plan of care reviewed with Charity EUBANKS.
--- NOTE | 2019-01-26 07:35 | NUR ---
EKG abnormal for Anteroseptal Infarct, possibly Acute WA. Pt asymptomatic. Last troponin .[address] Rider notified and ordered echo. for this AM.
[2019-01-26] MEDS: losartan 50mg tablet PO SCH (09:23)
[2019-01-26] MEDS: amLODIPine 5mg tablet PO SCH ×2 (09:23→19:27)
[2019-01-26] MEDS: amox tr/potassium clavulanate 875/125mg TAB PO SCH ×2 (09:23→19:27)
[2019-01-26] MEDS: citalopram 20mg tablet PO SCH (09:23)
[2019-01-26] MEDS: calcium carbonate/vitamin D3 tablet PO SCH (09:23)
[2019-01-26] MEDS: docusate sod 100mg capsule PO SCH ×3 (09:23→19:28)
[2019-01-26] MEDS: clopidogrel 75mg tablet PO SCH (09:24)
[2019-01-26] MEDS: allopurinol 300 MG tablet PO SCH (09:24)
[2019-01-26] MEDS: ferrous gluconate 324mg tablet PO SCH ×3 (09:30→19:27)
[2019-01-26 10:00] VITALS: BP 151/64
--- NOTE | 2019-01-26 10:36 | NUR ---
DM consult: Pt with A1c 5.7; DM ed not warranted at this time. Pt with low BMI of 19.8 using documented wt of 68 kg obtained from gurney scale with height of 73" tall. Pt currently on CHO controlled diet pending PO intake. No edema or significant decrease in muscle strength. Patient's height fluctuates 68-72" per ht hx in EMR. Unable to obtain information from pt at this time as he's documented as confused and A/O x 1 with hx dementia. Will continue to follow and monitor trends in PO intake and make recommendations as appropriate. Addendum: 01/26/19 at [address] Amended: Links added.
--- NOTE | 2019-01-26 14:27 | NUR ---
ID: [id number] MESSAGE: RAMAKRISHNA [id number] RE: MINNIE [id number] PATIENT IS AGITATED AND COMBATIVE, MEDS OR A SITTER?
[2019-01-26 18:00] VITALS: BP 150/70
--- NOTE | 2019-01-26 18:00 | NUR ---
Problems reprioritized. Patient report given, questions answered & plan of care reviewed with CHIARA EUBANKS.
--- NOTE | 2019-01-26 19:00 | NUR ---
Patient in room ORTHO 4008. I have received report from Charity EUBANKS and had the opportunity to ask questions and assume patient care.
[2019-01-26] MEDS: Melatonin 3mg tablet PO SCH (20:06)
[2019-01-26 22:00] VITALS: BP 145/61
[2019-01-27 06:00] VITALS: BP 154/22
--- NOTE | 2019-01-27 06:30 | NUR ---
Patient in room ORTHO 4008. I have received report from and had the opportunity to ask questions and assume patient care RAIMUNDO Michael.
[2019-01-27 07:09] LABS: BASOPHILS % (AUTO) 0.6 % (0-1); EOSINOPHILS # (AUTO) 0.2 X10'3 (0-0.9); EOSINOPHILS % (AUTO) 5.7 % (0-6); HEMATOCRIT 28.1 % (42.0-52.0); HEMOGLOBIN 9.3 g/dl (14.0-17.9); LYMPHOCYTES # (AUTO) 0.1 X10'3 (1.1-4.8); LYMPHOCYTES % (AUTO) 3.4 % (21-51); MEAN CORPUSCULAR HEMOGLOBIN 30.4 PG (27.0-31.0); MEAN CORPUSCULAR VOLUME 92.3 FL (78-98); MEAN PLATELET VOLUME 7.5 FL (7.4-10.4); MONOCYTES # (AUTO) 0.2 X10'3 (0-0.9); MONOCYTES % (AUTO) 6.1 % (2-12); NEUTROPHILS # (AUTO) 2.4 X10'3 (1.8-7.7); NEUTROPHILS % (AUTO) 84.2 % (42-75); PLATELET COUNT 85 X10'3 (140-440); RED BLOOD COUNT 3.04 X10'6 (4.70-6.10); RED CELL DISTRIBUTION WIDTH 15.7 % (11.5-14.5); WHITE BLOOD COUNT 2.9 X10'3 (4.5-11.0)
[2019-01-27 07:15] LABS: ALBUMIN 2.6 G/DL (3.4-5.0); ANION GAP 5 (8-16); BLOOD UREA NITROGEN 20 MG/DL (7-18); BUN/CREATININE RATIO 15.9 (5.4-32.0); CHLORIDE 113 MMOL/L (99-107); CREATININE 1.26 MG/DL (0.60-1.10); GLUCOSE 131 MG/DL (70-104); SODIUM 146 MMOL/L (135-145); TOTAL CARBON DIOXIDE 27.8 MMOL/L (24-32); eGFR 54 ML/MIN
[2019-01-27 08:45] LABS: ANISOCYTOSIS 1+; PLATELET ESTIMATE DECREASED; TOTAL CELLS COUNTED 100
[2019-01-27] MEDS: amox tr/potassium clavulanate 875/125mg TAB PO SCH ×2 (09:16→20:14)
[2019-01-27] MEDS: clopidogrel 75mg tablet PO SCH (09:17)
[2019-01-27] MEDS: calcium carbonate/vitamin D3 tablet PO SCH (09:17)
[2019-01-27] MEDS: ferrous gluconate 324mg tablet PO SCH ×3 (09:17→20:14)
[2019-01-27] MEDS: losartan 50mg tablet PO SCH (09:17)
[2019-01-27] MEDS: docusate sod 100mg capsule PO SCH ×3 (09:18→20:14)
[2019-01-27] MEDS: citalopram 20mg tablet PO SCH (09:18)
[2019-01-27] MEDS: allopurinol 300 MG tablet PO SCH (09:18)
[2019-01-27] MEDS: amLODIPine 5mg tablet PO SCH ×2 (09:18→20:14)
[2019-01-27 18:00] VITALS: BP 166/66
[2019-01-27] MEDS: Melatonin 3mg tablet PO SCH (20:14)
--- NOTE | 2019-01-28 06:00 | NUR ---
Patient in room ORTHO 4012. I have received report from and had the opportunity to ask questions and assume patient care RAIMUNDO Appiah.
[2019-01-28 06:13] LABS: ALBUMIN 2.8 G/DL (3.4-5.0); ANION GAP 7 (8-16); BLOOD UREA NITROGEN 16 MG/DL (7-18); BUN/CREATININE RATIO 13.4 (5.4-32.0); CALCIUM 8.3 MG/DL (8.5-10.1); CHLORIDE 110 MMOL/L (99-107); CREATININE 1.19 MG/DL (0.60-1.10); GLUCOSE 142 MG/DL (70-104); POTASSIUM 3.5 MMOL/L (3.5-5.1); SODIUM 146 MMOL/L (135-145); TOTAL CARBON DIOXIDE 28.6 MMOL/L (24-32); eGFR 58 ML/MIN
[2019-01-28 06:18] LABS: BASOPHILS % (AUTO) 0.7 % (0-1); EOSINOPHILS # (AUTO) 0.1 X10'3 (0-0.9); EOSINOPHILS % (AUTO) 2.9 % (0-6); HEMATOCRIT 30.2 % (42.0-52.0); LYMPHOCYTES # (AUTO) 0.1 X10'3 (1.1-4.8); LYMPHOCYTES % (AUTO) 3.6 % (21-51); MEAN CORPUSCULAR HEMOGLOBIN 30.4 PG (27.0-31.0); MEAN CORPUSCULAR HGB CONC 33.2 g/dL (33.0-36.5); MEAN CORPUSCULAR VOLUME 91.7 FL (78-98); MEAN PLATELET VOLUME 7.8 FL (7.4-10.4); MONOCYTES # (AUTO) 0.2 X10'3 (0-0.9); MONOCYTES % (AUTO) 5.6 % (2-12); NEUTROPHILS # (AUTO) 3.4 X10'3 (1.8-7.7); NEUTROPHILS % (AUTO) 87.2 % (42-75); PLATELET COUNT 104 X10'3 (140-440); RED CELL DISTRIBUTION WIDTH 15.4 % (11.5-14.5)
--- NOTE | 2019-01-28 06:37 | NUR ---
Report given to hilario Richardson.
[2019-01-28 07:43] VITALS: BP 162/61
[2019-01-28] MEDS: clopidogrel 75mg tablet PO SCH (07:52)
[2019-01-28] MEDS: amox tr/potassium clavulanate 875/125mg TAB PO SCH ×2 (08:06→20:28)
[2019-01-28] MEDS: amLODIPine 5mg tablet PO SCH ×2 (08:06→20:28)
[2019-01-28] MEDS: docusate sod 100mg capsule PO SCH ×3 (08:06→20:28)
[2019-01-28] MEDS: ferrous gluconate 324mg tablet PO SCH ×3 (08:06→20:28)
[2019-01-28] MEDS: allopurinol 300 MG tablet PO SCH (08:07)
[2019-01-28] MEDS: calcium carbonate/vitamin D3 tablet PO SCH (08:07)
[2019-01-28] MEDS: losartan 50mg tablet PO SCH (08:07)
[2019-01-28] MEDS: citalopram 20mg tablet PO SCH (08:07)
[2019-01-28 10:00] VITALS: BP 164/62
[2019-01-28 14:10] VITALS: BP 160/78
[2019-01-28 14:16] VITALS: BP 167/77
[2019-01-28 18:00] VITALS: BP 167/63
--- NOTE | 2019-01-28 18:20 | NUR ---
Problems reprioritized. Patient report given, questions answered & plan of care reviewed with RAIMUNDO Richardson.
--- NOTE | 2019-01-28 19:05 | NUR ---
REPORT REC'D FROM RAIMUNDO NATHAN.
[2019-01-28] MEDS: prazosin 1mg capsule PO SCH (20:28)
[2019-01-28] MEDS: Melatonin 3mg tablet PO SCH (20:28)
--- NOTE | 2019-01-28 21:46 | NUR ---
REC'D NEW ORDER FROM DR LILLY FOR MINIPRESS 1MG PO QHS FOR AGGITATION. PT IS NOW RESTING COMFORTABLY.
[2019-01-28 22:00] VITALS: BP 132/84
[2019-01-29 06:00] VITALS: BP 155/60
--- NOTE | 2019-01-29 06:24 | NUR ---
REPORT GIVEN TO RAIMUNDO NATHAN.
[2019-01-29 07:15] LABS: BASOPHILS % (AUTO) 0.6 % (0-1); EOSINOPHILS % (AUTO) 2.2 % (0-6); HEMATOCRIT 27.4 % (42.0-52.0); HEMOGLOBIN 9.1 g/dl (14.0-17.9); LYMPHOCYTES # (AUTO) 0.1 X10'3 (1.1-4.8); LYMPHOCYTES % (AUTO) 6.9 % (21-51); MEAN CORPUSCULAR HEMOGLOBIN 30.3 PG (27.0-31.0); MEAN CORPUSCULAR HGB CONC 33.1 g/dL (33.0-36.5); MEAN CORPUSCULAR VOLUME 91.6 FL (78-98); MEAN PLATELET VOLUME 7.6 FL (7.4-10.4); MONOCYTES # (AUTO) 0.1 X10'3 (0-0.9); MONOCYTES % (AUTO) 6.4 % (2-12); NEUTROPHILS # (AUTO) 1.7 X10'3 (1.8-7.7); NEUTROPHILS % (AUTO) 83.9 % (42-75); PLATELET COUNT 84 X10'3 (140-440); RED BLOOD COUNT 2.99 X10'6 (4.70-6.10); RED CELL DISTRIBUTION WIDTH 15.3 % (11.5-14.5)
[2019-01-29 07:18] LABS: ALBUMIN 2.6 G/DL (3.4-5.0); ANION GAP 6 (8-16); BLOOD UREA NITROGEN 16 MG/DL (7-18); BUN/CREATININE RATIO 12.5 (5.4-32.0); CALCIUM 8.1 MG/DL (8.5-10.1); CHLORIDE 110 MMOL/L (99-107); CREATININE 1.28 MG/DL (0.60-1.10); GLUCOSE 133 MG/DL (70-104); POTASSIUM 3.7 MMOL/L (3.5-5.1); SODIUM 143 MMOL/L (135-145); TOTAL CARBON DIOXIDE 27.5 MMOL/L (24-32); eGFR 53 ML/MIN
[2019-01-29] MEDS: calcium carbonate/vitamin D3 tablet PO SCH (08:52)
[2019-01-29] MEDS: citalopram 20mg tablet PO SCH (08:52)
[2019-01-29] MEDS: amox tr/potassium clavulanate 875/125mg TAB PO SCH ×2 (08:52→20:34)
[2019-01-29] MEDS: ferrous gluconate 324mg tablet PO SCH ×3 (08:52→20:34)
[2019-01-29] MEDS: losartan 50mg tablet PO SCH (08:52)
[2019-01-29] MEDS: amLODIPine 5mg tablet PO SCH ×2 (08:52→20:34)
[2019-01-29] MEDS: docusate sod 100mg capsule PO SCH ×3 (08:52→20:34)
[2019-01-29] MEDS: clopidogrel 75mg tablet PO SCH (08:52)
[2019-01-29] MEDS: allopurinol 300 MG tablet PO SCH (08:52)
[2019-01-29 17:02] LABS: TOTAL CELLS COUNTED 100
[2019-01-29 17:03] LABS: PLATELET ESTIMATE DECREASED
[2019-01-29 17:05] LABS: ANISOCYTOSIS 1+; HYPOCHROMASIA 1+
[2019-01-29] MEDS: Melatonin 3mg tablet PO SCH (20:34)
[2019-01-29] MEDS: prazosin 1mg capsule PO SCH (20:34)
[2019-01-29] MEDS ORDERED: risperiDONE 0.5mg tablet PO ONE (21:00)
[2019-01-29 22:00] VITALS: BP 152/62
[2019-01-30 06:00] VITALS: BP 157/62
--- NOTE | 2019-01-30 06:55 | NUR ---
Patient in room ORTHO 4012. I have received report from RAIMUNDO Richardson and had the opportunity to ask questions and assume patient care.
--- NOTE | 2019-01-30 06:55 | NUR ---
REPORT GIVEN TO RAIMUNDO CHOW.
[2019-01-30 07:15] LABS: BASOPHILS % (AUTO) 0.9 % (0-1); EOSINOPHILS % (AUTO) 2.4 % (0-6); HEMATOCRIT 25.9 % (42.0-52.0); HEMOGLOBIN 8.8 g/dl (14.0-17.9); LYMPHOCYTES # (AUTO) 0.1 X10'3 (1.1-4.8); LYMPHOCYTES % (AUTO) 7.8 % (21-51); MEAN CORPUSCULAR HEMOGLOBIN 31.2 PG (27.0-31.0); MEAN CORPUSCULAR HGB CONC 33.9 g/dL (33.0-36.5); MEAN PLATELET VOLUME 7.9 FL (7.4-10.4); MONOCYTES # (AUTO) 0.1 X10'3 (0-0.9); MONOCYTES % (AUTO) 6.9 % (2-12); NEUTROPHILS # (AUTO) 1.5 X10'3 (1.8-7.7); PLATELET COUNT 85 X10'3 (140-440); RED BLOOD COUNT 2.82 X10'6 (4.70-6.10); RED CELL DISTRIBUTION WIDTH 15.4 % (11.5-14.5); WHITE BLOOD COUNT 1.8 X10'3 (4.5-11.0)
[2019-01-30 07:32] LABS: ALBUMIN 2.5 G/DL (3.4-5.0); ANION GAP 6 (8-16); BLOOD UREA NITROGEN 18 MG/DL (7-18); BUN/CREATININE RATIO 14.4 (5.4-32.0); CHLORIDE 110 MMOL/L (99-107); CREATININE 1.25 MG/DL (0.60-1.10); GLUCOSE 125 MG/DL (70-104); POTASSIUM 3.7 MMOL/L (3.5-5.1); SODIUM 144 MMOL/L (135-145); TOTAL CARBON DIOXIDE 27.9 MMOL/L (24-32); eGFR 55 ML/MIN
[2019-01-30] MEDS: calcium carbonate/vitamin D3 tablet PO SCH (08:00)
[2019-01-30] MEDS: losartan 50mg tablet PO SCH (08:00)
[2019-01-30] MEDS: allopurinol 300 MG tablet PO SCH (08:00)
[2019-01-30] MEDS: ferrous gluconate 324mg tablet PO SCH ×2 (08:00→13:42)
[2019-01-30] MEDS: amox tr/potassium clavulanate 875/125mg TAB PO SCH (08:00)
[2019-01-30] MEDS: amLODIPine 5mg tablet PO SCH (08:00)
[2019-01-30] MEDS: clopidogrel 75mg tablet PO SCH (08:00)
[2019-01-30] MEDS: citalopram 20mg tablet PO SCH (08:00)
[2019-01-30] MEDS: docusate sod 100mg capsule PO SCH ×2 (08:00→13:42)
[2019-01-30 10:00] VITALS: BP 161/53
--- NOTE | 2019-01-30 11:51 | NUR ---
Initial: Pt admit s/p fall at assisted living. Hx severe dementia DX bilateral PNA possibly aspiration per MD note. 1L R and 400ml L thoracentesis removed per MD note. Pt PO 0-25% carb controlled diet; ensure pudding TIDWM added for additional protein/kcal needs. RD also rec [employer] BSS given potential aspiration. Pt no BM reported yet this admit receiving Fe and colace but pt also unable to give hx. RD d/w RN regarding additional routine bowel care per MD approval. Will monitor for diet advancement per [employer] recs and additional bowel care needs. Will monitor for additional malnutrition criteria if low PO continues after constipation resolves. Rec: 1. advance diet per MD/[employer] to regular; encourage PO 2. ensure pudding TIDWM 3. routine bowel care 4. weekly wts Addendum: 01/30/19 at [address] Amended: Links added.
[2019-01-30] MEDS ORDERED: RISP0.5T74 PO (15:06)
== END 2019-01-30 18:30 | disposition hospice, inpatient (51) | DRG 280 ==
LOC: ER 23:57 → OBSVTOIN 01-26 03:44 → ORTHO 4S 01-26 03:44
PROVIDERS: ADMIT Hospitalist; ATTEND Family Medicine
PROC: 0W9B3ZZ Drainage of Left Pleural Cavity, Percutaneous Approach (ICD-10-PCS; principal; 2019-01-28)
PROC: 0W993ZZ Drainage of Right Pleural Cavity, Percutaneous Approach (ICD-10-PCS; 2019-01-28)
DX: I21.A1 Myocardial infarction type 2 (principal); E43 Unspecified severe protein-calorie malnutrition; J18.1 Lobar pneumonia, unspecified organism; D61.818 Other pancytopenia; J91.8 Pleural effusion in other conditions classified elsewhere; Z68.1 Body mass index [BMI] 19.9 or less, adult; E11.22 Type 2 diabetes mellitus with diabetic chronic kidney disease; F03.90 Unspecified dementia, unspecified severity, without behavioral disturbance, psychotic disturbance, mood disturbance, and anxiety; N18.9 Chronic kidney disease, unspecified; Z66 Do not resuscitate; M19.90 Unspecified osteoarthritis, unspecified site; W18.39XA Other fall on same level, initial encounter; Z88.2 Allergy status to sulfonamides; Z88.1 Allergy status to other antibiotic agents; Z88.8 Allergy status to other drugs, medicaments and biological substances; Z79.02 Long term (current) use of antithrombotics/antiplatelets; Z85.6 Personal history of leukemia; Z86.73 Personal history of transient ischemic attack (TIA), and cerebral infarction without residual deficits; Z95.1 Presence of aortocoronary bypass graft; Z87.01 Personal history of pneumonia (recurrent); Y93.89 Activity, other specified; Y92.89 Other specified places as the place of occurrence of the external cause; Y99.8 Other external cause status
CPT/HCPCS: 32555; 36415; 70450; 71045; 71250; 80048; 80053; 83690; 84484; 85025; 85610; 85730; 87081; 92508; 92616; 93005; 93306; 94760; 97110; 97116; 97161; 97530; 99285; G0378